=== PATIENT | female | born 1995 | race Caucasian/White ===

== ENCOUNTER 2018-01-08 17:32 | Emergency (ER) | payer MEDICAID ==
[~2018-01-08] VITALS: Ht 175.3 cm; Wt 153.0 kg
[2018-01-08] MEDS ORDERED: pantoprazole 40 MG vial IV ONE (18:05)
[2018-01-08 18:34] VITALS: BP 127/83
[2018-01-08 18:56] LABS: BASOPHILS # (AUTO) 0.1 X10'3 (0-0.2); BASOPHILS % (AUTO) 0.9 % (0-1); EOSINOPHILS # (AUTO) 0.2 X10'3 (0-0.9); EOSINOPHILS % (AUTO) 1.8 % (0-6); HEMATOCRIT 36.4 % (35.0-45.0); HEMOGLOBIN 11.6 g/dl (12.0-16.0); LYMPHOCYTES # (AUTO) 2.6 X10'3 (1.1-4.8); LYMPHOCYTES % (AUTO) 23.4 % (21-51); MEAN CORPUSCULAR HEMOGLOBIN 24.4 PG (27.0-31.0); MEAN CORPUSCULAR HGB CONC 31.9 % (33.0-36.5); MEAN CORPUSCULAR VOLUME 76.4 FL (78-98); MEAN PLATELET VOLUME 8.3 FL (7.4-10.4); MONOCYTES # (AUTO) 0.9 X10'3 (0-0.9); MONOCYTES % (AUTO) 7.8 % (2-12); NEUTROPHILS # (AUTO) 7.4 X10'3 (1.8-7.7); NEUTROPHILS % (AUTO) 66.1 % (42-75); PLATELET COUNT 422 X10'3 (140-440); RED BLOOD COUNT 4.77 X10'6 (4.20-5.60); RED CELL DISTRIBUTION WIDTH 15.3 % (11.5-14.5); WHITE BLOOD COUNT 11.2 X10'3 (4.5-11.0)
[2018-01-08 18:59] LABS: ALANINE AMINOTRANSFERASE 21 U/L (12-78); ALBUMIN 3.3 G/DL (3.4-5.0); ALBUMIN/GLOBULIN RATIO 0.8 (1.1-1.5); ALKALINE PHOSPHATASE 122 IU/L (46-116); ANION GAP 7 (8-16); ASPARTATE AMINO TRANSFERASE 14 U/L (10-37); BILIRUBIN,TOTAL 0.2 MG/DL (0.1-1.0); BLOOD UREA NITROGEN 12 MG/DL (7-18); BUN/CREATININE RATIO 17.4 (6.6-38.0); CALCIUM 8.3 MG/DL (8.5-10.1); CHLORIDE 103 MMOL/L (99-107); CREATININE 0.69 MG/DL (0.40-0.90); GLUCOSE 88 MG/DL (70-104); LIPASE 104 U/L (73-393); POTASSIUM 3.9 MMOL/L (3.5-5.1); SODIUM 138 MMOL/L (135-145); TOTAL CARBON DIOXIDE 28.1 MMOL/L (24-32); TOTAL PROTEIN 7.7 G/DL (6.4-8.2); eGFR > 90 ML/MIN
== END 2018-01-08 20:29 | disposition home or self-care (01) ==
LOC: ER 17:32
DX: R10.13 Epigastric pain (principal); R07.89 Other chest pain; R00.2 Palpitations; R05 Cough; E66.01 Morbid (severe) obesity due to excess calories; Z88.6 Allergy status to analgesic agent; Z87.891 Personal history of nicotine dependence; Z98.890 Other specified postprocedural states
CPT/HCPCS: 36415; 80053; 83690; 85025; 93005; 96374; 99285; C9113

== ENCOUNTER 2019-04-26 16:15 | Emergency (ER) | payer MEDICAID ==
[~2019-04-26] VITALS: Ht 175.3 cm; Wt 155.9 kg
[2019-04-26 16:47] LABS: BASOPHILS # (AUTO) 0.1 X10'3 (0-0.2); BASOPHILS % (AUTO) 1.2 % (0-1); EOSINOPHILS # (AUTO) 0.1 X10'3 (0-0.9); HEMATOCRIT 37.9 % (35.0-45.0); HEMOGLOBIN 12.4 g/dl (12.0-16.0); LYMPHOCYTES # (AUTO) 2.9 X10'3 (1.1-4.8); LYMPHOCYTES % (AUTO) 27.8 % (21-51); MEAN CORPUSCULAR HEMOGLOBIN 25.2 PG (27.0-31.0); MEAN CORPUSCULAR HGB CONC 32.7 g/dL (33.0-36.5); MEAN CORPUSCULAR VOLUME 76.8 FL (78-98); MEAN PLATELET VOLUME 7.9 FL (7.4-10.4); MONOCYTES # (AUTO) 0.7 X10'3 (0-0.9); MONOCYTES % (AUTO) 7.3 % (2-12); NEUTROPHILS # (AUTO) 6.5 X10'3 (1.8-7.7); NEUTROPHILS % (AUTO) 62.7 % (42-75); PLATELET COUNT 489 X10'3 (140-440); RED BLOOD COUNT 4.93 X10'6 (4.20-5.60); RED CELL DISTRIBUTION WIDTH 16.6 % (11.5-14.5); WHITE BLOOD COUNT 10.3 X10'3 (4.5-11.0)
[2019-04-26] MEDS ORDERED: ondansetron 4mg rapidly disintigrating tab PO ONE (17:00)
[2019-04-26 17:04] LABS: ALANINE AMINOTRANSFERASE 24 U/L (12-78); ALBUMIN 3.6 G/DL (3.4-5.0); ALBUMIN/GLOBULIN RATIO 0.9 (1.1-1.5); ALKALINE PHOSPHATASE 146 IU/L (46-116); ANION GAP 6 (8-16); ASPARTATE AMINO TRANSFERASE 16 U/L (10-37); BILIRUBIN,TOTAL 0.2 MG/DL (0.1-1.0); BLOOD UREA NITROGEN 10 MG/DL (7-18); BUN/CREATININE RATIO 11.8 (6.6-38.0); CALCIUM 8.5 MG/DL (8.5-10.1); CHLORIDE 104 MMOL/L (99-107); CREATININE 0.85 MG/DL (0.40-0.90); GLUCOSE 142 MG/DL (70-104); POTASSIUM 3.8 MMOL/L (3.5-5.1); SODIUM 138 MMOL/L (135-145); TOTAL CARBON DIOXIDE 27.9 MMOL/L (24-32); TOTAL PROTEIN 7.8 G/DL (6.4-8.2); eGFR 83 ML/MIN
[2019-04-26 17:56] LABS: URINE HCG NEGATIVE (NEG)
[2019-04-26 17:57] LABS: CLARITY,URINE SLIGHTLY CLOUDY (Clear); COLOR,URINE YELLOW (Yellow); GLUCOSE, URINE NEGATIVE (Neg); KETONES,URINE NEGATIVE (Neg); LEUKOCYTE ESTERASE ,URINE NEGATIVE (Neg); NITRITES, URINE NEGATIVE (Neg); OCCULT BLOOD,URINE NEGATIVE (Neg); PROTEIN,URINE NEGATIVE (Neg); UROBILINOGEN,URINE 0.2 E.U/dL (0.2-1.0)
[2019-04-26 17:58] LABS: UA COLLECTION TYPE CLN CATCH MIDSTREAM
[2019-04-26 18:05] LABS: BACTERIA,URINE FEW /HPF (Neg); MUCUS STRANDS FEW /LPF (Neg); RBC,URINE 0-2 /HPF (0-2); SQUAMOUS EPITHELIAL CELL,UR FEW /LPF (FEW); WBC,URINE 0-4 /HPF (0-4)
[2019-04-26] MEDS ORDERED: ketorolac trometh. 30mg/ml inj. IM ONE (18:35)
[2019-04-26 18:40] VITALS: BP 126/76
== END 2019-04-26 18:42 | disposition home or self-care (01) ==
LOC: ER 16:15
DX: R42 Dizziness and giddiness (principal); F10.20 Alcohol dependence, uncomplicated; R11.2 Nausea with vomiting, unspecified; Z72.89 Other problems related to lifestyle; Z88.5 Allergy status to narcotic agent; Z98.890 Other specified postprocedural states; Z88.8 Allergy status to other drugs, medicaments and biological substances; Y90.9 Presence of alcohol in blood, level not specified
CPT/HCPCS: 36415; 71045; 80053; 81001; 81025; 82948; 84484; 85025; 93005; 99284

== ENCOUNTER 2019-12-09 16:15 | Emergency (ER) | payer MEDICAID ==
[~2019-12-09] VITALS: Ht 175.3 cm; Wt 175.0 kg
[2019-12-09] MEDS ORDERED: ketorolac trometh. 30mg/ml inj. IM ONE (19:25)
[2019-12-09 19:42] VITALS: BP 142/89
== END 2019-12-09 19:43 | disposition home or self-care (01) ==
LOC: ER 16:16
DX: M54.5 Low back pain (principal); R20.0 Anesthesia of skin; Z98.890 Other specified postprocedural states; Z88.5 Allergy status to narcotic agent
CPT/HCPCS: 99281

== ENCOUNTER 2020-03-05 16:38 | Emergency (ER) | payer MEDICAID ==
[~2020-03-05] VITALS: Ht 175.3 cm; Wt 170.7 kg
[2020-03-05 16:42] VITALS: BP 152/60
[2020-03-05] MEDS ORDERED: diphenhydrAMINE 50 mg/ml inj IV ONE (18:35)
[2020-03-05] MEDS ORDERED: normal saline 1000ml 1,000 ML IV ONE ×2 (18:35)
[2020-03-05] MEDS ORDERED: proCHLORperazine 10 MG/2 ml inj IV ONE (18:35)
== END 2020-03-05 19:55 | disposition home or self-care (01) ==
LOC: ER 16:39
DX: R51.9 Headache, unspecified (principal); R42 Dizziness and giddiness; H53.8 Other visual disturbances; I10 Essential (primary) hypertension; Z87.440 Personal history of urinary (tract) infections; Z98.890 Other specified postprocedural states; Z72.89 Other problems related to lifestyle; Z88.8 Allergy status to other drugs, medicaments and biological substances
CPT/HCPCS: 70450; 99284

== ENCOUNTER 2020-07-01 13:35 | Emergency (ER) | payer MEDICAID ==
[~2020-07-01] VITALS: Ht 175.3 cm; Wt 172.7 kg
[2020-07-01 14:52] LABS: BASOPHILS # (AUTO) 0.1 X10'3 (0-0.2); EOSINOPHILS # (AUTO) 0.1 X10'3 (0-0.9); EOSINOPHILS % (AUTO) 0.9 % (0-6); HEMATOCRIT 39.2 % (35.0-45.0); HEMOGLOBIN 12.3 g/dl (12.0-16.0); LYMPHOCYTES # (AUTO) 2.6 X10'3 (1.1-4.8); MEAN CORPUSCULAR HGB CONC 31.4 g/dL (33.0-36.5); MEAN CORPUSCULAR VOLUME 79.6 FL (78-98); MEAN PLATELET VOLUME 8.3 FL (7.4-10.4); MONOCYTES % (AUTO) 8.6 % (2-12); NEUTROPHILS # (AUTO) 7.4 X10'3 (1.8-7.7); NEUTROPHILS % (AUTO) 66.5 % (42-75); PLATELET COUNT 417 X10'3 (140-440); RED BLOOD COUNT 4.92 X10'6 (4.20-5.60); RED CELL DISTRIBUTION WIDTH 15.5 % (11.5-14.5); WHITE BLOOD COUNT 11.1 X10'3 (4.5-11.0)
--- NOTE | 2020-07-01 15:00 | NUR ---
PT DENIES HITTING GUARD RAIL OR TAKING MEDICATIONS, STATES THOSE ARE THOUGHTS SHE HAD EARLIER.
[2020-07-01 15:06] LABS: ALANINE AMINOTRANSFERASE 27 U/L (12-78); ALBUMIN 3.5 G/DL (3.4-5.0); ALBUMIN/GLOBULIN RATIO 0.8 (1.1-1.5); ALKALINE PHOSPHATASE 137 IU/L (46-116); ANION GAP 9 (8-16); ASPARTATE AMINO TRANSFERASE 16 U/L (10-37); BILIRUBIN,TOTAL 0.2 MG/DL (0.1-1.0); BLOOD UREA NITROGEN 8 MG/DL (7-18); BUN/CREATININE RATIO 10.4 (6.6-38.0); CALCIUM 8.9 MG/DL (8.5-10.1); CHLORIDE 106 MMOL/L (99-107); CREATININE 0.77 MG/DL (0.40-0.90); GLUCOSE 125 MG/DL (70-104); SODIUM 140 MMOL/L (135-145); TOTAL CARBON DIOXIDE 25.5 MMOL/L (24-32); TOTAL PROTEIN 7.7 G/DL (6.4-8.2); eGFR > 90 ML/MIN
[2020-07-01 15:09] LABS: URINE HCG NEGATIVE (NEG)
[2020-07-01 15:12] LABS: CLARITY,URINE CLEAR (Clear); COLOR,URINE YELLOW (Yellow); GLUCOSE, URINE NEGATIVE (Neg); KETONES,URINE NEGATIVE (Neg); LEUKOCYTE ESTERASE ,URINE TRACE (Neg); NITRITES, URINE NEGATIVE (Neg); OCCULT BLOOD,URINE NEGATIVE (Neg); PH,URINE 6.5 (4.8-8.0); PROTEIN,URINE NEGATIVE (Neg); UROBILINOGEN,URINE 0.2 E.U/dL (0.2-1.0)
[2020-07-01 15:16] LABS: UA COLLECTION TYPE CLN CATCH MIDSTREAM
[2020-07-01 15:16] LABS: ETHANOL < 0.010 GM/DL (0.0-0.010)
[2020-07-01 15:18] LABS: MUCUS STRANDS MODERATE /LPF (Neg); SQUAMOUS EPITHELIAL CELL,UR MODERATE /LPF (FEW); WBC CLUMPS,URINE FEW /HPF (NEGATIVE)
[2020-07-01 15:19] LABS: BACTERIA,URINE FEW /HPF (Neg); RBC,URINE 0-2 /HPF (0-2)
[2020-07-01 15:21] LABS: ACETAMINOPHEN < 2.0 UG/ML (10-30)
[2020-07-01 15:23] LABS: URINE AMPHETAMINE SCREEN NEGATIVE (Neg); URINE BARBITUATE SCREEN NEGATIVE (Neg); URINE BENZODIAZEPINES SCREEN NEGATIVE (Neg); URINE CANNABINOID SCREEN POSITIVE (Neg); URINE COCAINE SCREEN NEGATIVE (Neg); URINE METHADONE SCREEN NEGATIVE (Neg); URINE OPIATE SCREEN NEGATIVE (Neg); URINE PHENCYCLIDINE SCREEN NEGATIVE (Neg)
[2020-07-01] MEDS ORDERED: NO HOME MEDS (15:35)
--- NOTE | 2020-07-01 17:09 | NUR ---
Pt cooperative, calm. C/O headache "from crying." PA notified.
[2020-07-01] MEDS ORDERED: ibuprofen tablet 400 MG TABLET PO ONE (17:15)
[2020-07-01] MEDS ORDERED: ibuprofen 200mg tablet PO ONE (17:25)
--- NOTE | 2020-07-01 18:37 | NUR ---
[facility] RN, OLVIN, AT BEDSIDE FOR EVALUATION AT THIS TIME. PT APPEARS CALM AND COOPERATIVE. ROOM STRIPPED PER MENTAL HEALTH PROTOCOL AND PT DRESSED IN GREEN SCRUBS. PERSNOAL BELONGINGS INVENTORIED.
--- NOTE | 2020-07-01 20:37 | NUR ---
Report given to Padmini at [facility] who states she will review the pt information with the doctor and call us back.
--- NOTE | 2020-07-02 02:24 | NUR ---
Pt sleeping on back, even unlabored respirations, no signs of distress at this time.
--- NOTE | 2020-07-02 04:05 | NUR ---
PT CONTINUES TO SLEEP ON HER BACK, EVEN RESPIRATIONS AND NO SIGNS OF DISTRESS
--- NOTE | 2020-07-02 05:47 | NUR ---
PT IS SLEEPING PEACEFULLY ON RIGHT SIDE, EVEN AND UNLABORED RESPIRATIONS
[2020-07-02 06:07] VITALS: BP 158/93
--- NOTE | 2020-07-02 07:47 | NUR ---
SPOKE TO MORENO AT [facility], REQUESTING COVID RESULTS, LORENZO SENT RESULTS. MORENO ALSO MENTIONED TRANSPORT SHOULD BE HERE AROUND 0815.
--- NOTE | 2020-07-02 08:05 | NUR ---
TRANSPORT HERE TO ESCORT PT TO [facility].
== END 2020-07-02 08:09 ==
LOC: ER 13:39
DX: R45.851 Suicidal ideations (principal); Z20.822 Contact with and (suspected) exposure to COVID-19; R00.2 Palpitations; R07.89 Other chest pain; I10 Essential (primary) hypertension; F31.9 Bipolar disorder, unspecified; Z87.440 Personal history of urinary (tract) infections; Z98.890 Other specified postprocedural states; Z72.89 Other problems related to lifestyle; Z88.8 Allergy status to other drugs, medicaments and biological substances
CPT/HCPCS: 36415; 80053; 80178; 80305; 80320; 80329; 81001; 81025; 84443; 85025; 87426; 99285

== ENCOUNTER 2020-07-10 12:09 | Emergency (ER) | payer MEDICAID ==
[~2020-07-10] VITALS: Ht 175.3 cm; Wt 172.7 kg
[~2020-07-10 12:09] MED LIST: NO HOME MEDS
[2020-07-10 12:13] VITALS: BP 166/88
== END 2020-07-10 16:08 | disposition left against medical advice (07) ==
LOC: ER 12:10
DX: S06.0X9A Concussion with loss of consciousness of unspecified duration, initial encounter (principal); R51.9 Headache, unspecified; R42 Dizziness and giddiness; I10 Essential (primary) hypertension; F31.9 Bipolar disorder, unspecified; Z87.440 Personal history of urinary (tract) infections; Z98.890 Other specified postprocedural states; Z72.89 Other problems related to lifestyle; Z88.8 Allergy status to other drugs, medicaments and biological substances; X58.XXXA Exposure to other specified factors, initial encounter; Y93.89 Activity, other specified; Y92.89 Other specified places as the place of occurrence of the external cause; Y99.8 Other external cause status

== ENCOUNTER 2021-12-30 11:54 | Emergency (ER) | payer MEDICAID ==
[~2021-12-30] VITALS: Ht 175.3 cm; Wt 165.9 kg
[2021-12-30 12:01] VITALS: BP 159/72
[2021-12-30 13:01] LABS: URINE HCG NEGATIVE (NEG)
[2021-12-30] MEDS ORDERED: meclizine 12.5mg tablet PO ONE (15:35)
== END 2021-12-30 16:59 | disposition home or self-care (01) ==
LOC: ER 11:55
DX: R42 Dizziness and giddiness (principal); M25.532 Pain in left wrist; R11.0 Nausea; I10 Essential (primary) hypertension; F31.9 Bipolar disorder, unspecified; Z87.440 Personal history of urinary (tract) infections; Z98.890 Other specified postprocedural states; Z72.89 Other problems related to lifestyle; Z88.8 Allergy status to other drugs, medicaments and biological substances
CPT/HCPCS: 29125; 73110; 81025; 99284; J8597; L3908

== ENCOUNTER 2024-12-26 17:32 | Emergency (ER) | payer MEDICAID ==
[~2024-12-26] VITALS: Ht 175.3 cm; Wt 177.7 kg
[2024-12-26 17:54] VITALS: BP 124/47; PULSE 70; RESP 18; TEMP 97.1; O2SAT 97
--- NOTE | 2024-12-26 18:22 | Physician Documentation ---
History of Present Illness ~ Chief Complaint: Neck pain Stated Complaint: L ARM NUMBNESS/NECK STIFFNESS Primary Medical Doctor: Kitty Hobson [facility] 29-year-old female who presents to the emergency department today due to concerns for intermittent paresthesia to the 1st three fingers of the left hand. She does note history of chronic neck pain, evidently onset ever since a fall two months ago. She has had an MRI, she does have a referral pending to neurosurgery. Per her report, she does have history of bulging discs at C5 and C6. She presented to a local urgent care today, was requesting trigger point injections. They directed her here as they were very concerned about the paresthesia to the left hand. Medication Reconciliation Allergies: Coded Allergies: oxycodone (Verified Allergy, Intermediate, HIVES, 12/26/24) escitalopram (Verified Allergy, Unknown, 12/26/24) Miscellaneous Medications Home Med List (No Home Medications), (Reported) Past Medical History Past Medical History: Vertigo, Hypertension, UTI, Bipolar Past Surgical History: Alcohol Use: Occasionally Drug Use: none Lives with: Family Lives In: Home Occupation: employed Review of Systems ROS As stated above in the HPI, otherwise all systems are reviewed and negative. Physical Exam Vital Signs: Temperature: 97.1, Source: Temporal, Heart Rate: 70, Respiratory Rate: 18, BP: 124/47, Pulse Oximetry: 97, Weight: 177.700 Physical Exam General: Alert, no apparent distress. Neck: Full range of motion. No midline tenderness with palpation of spinal bones. TTP of musculature adjacent to C spine. L arm warm, pink and with brisk cap refill. Respiratory: Lungs clear, no respiratory distress. Chest: No accessory muscle use. Cardiovascular: Regular rate and rhythm, no murmurs. Gastrointestinal: Soft, nontender, nondistended. Bowels sounds present. Extremities: Normal range of motion, no deformity. Neurologic: Oriented x4. Psychiatric: Normal mood and affect. Skin: Normal color, warm and dry. No edema, no ecchymosis. Progress Results/Orders Results/Orders Orders - EDEN REAVES [employer] [facility] (12/26/24 18:12) Vital Signs 12/26/24 17:54 Temp 97.1 Pulse 70 Resp 18 B/P (MAP) 124/47 Pulse Ox 97 Medical Decision Making Differential Dx:Considerations: Include: Cervical muscle spasm, Discitis, DJD, Meningitis, Thyroiditis, Torticollis, Vertebral artery dissect. Departure Time of Disposition: 18:20 Disposition: 01 HOME / SELF CARE / HOMELESS Impression: Primary Impression: Neck pain Additional Impression: Paresthesia of left upper extremity Condition: Stable Discharge Instructions: Degenerative Disk Disease, Cervical Sprain Referrals: NO PRIMARY CARE PROVIDER (PCP) Education Educated: Patient Educated regarding: diagnosis, treatment, prognosis, need for follow up Signature Scribe Signature: x Attestation: The note accurately reflects work and decisions made by me.Eden Gant NP 12/26/24 18:20 EDEN REAVES NP Dec 26, 2024 18:22
--- NOTE | 2024-12-26 18:41 | RADIOLOGY REPORT ---
INDICATION: pain, LUE parasthesia TECHNIQUE: 3 views of the cervical spine were obtained. COMPARISON: None FINDINGS: The cervical spine is visualized from C1-C7. There is loss of the normal cervical lordosis which can be positional. No fractures or subluxations are identified. Alignment appears unremarkable. Prevertebral soft tissues are within normal limits. No significant degenerative changes. IMPRESSION: No significant osseus abnormality.
== END 2024-12-26 21:41 | disposition home or self-care (01) ==
LOC: ER 17:33
DX: M54.2 Cervicalgia (principal); R20.2 Paresthesia of skin; I10 Essential (primary) hypertension; G89.29 Other chronic pain; F31.9 Bipolar disorder, unspecified; Z88.5 Allergy status to narcotic agent; Z87.440 Personal history of urinary (tract) infections; Z72.89 Other problems related to lifestyle; Z98.890 Other specified postprocedural states
CPT/HCPCS: 72040; 99283